=== PATIENT | male | born 2000 | race Caucasian/White ===

== ENCOUNTER 2023-10-07 10:41 | Emergency (ER) | payer BC, SELFPAY ==
--- NOTE | ~2023-10-07 | US_ITS ---
EXAMINATION: US RENAL, LEFT CLINICAL INFORMATION: Left flank and back pain COMPARISON: None TECHNIQUE: Ultrasound of the left kidney was performed. FINDINGS: The right kidney was not imaged due to to localizing pain. The left kidney measures 12.2 x 7.1 x 5.3 cm. There is mild caliectasis without hydronephrosis, contour deforming solid mass, shadowing calculus or perinephric fluid collection on the left. US/US renal LT IMPRESSION: Mild caliectasis.
--- NOTE | ~2023-10-07 | XR_ITS ---
EXAMINATION: XR LUMBOSACRAL SPINE CLINICAL INFORMATION: Lumbar pain after exercise COMPARISON: None available. TECHNIQUE: Three views of the lumbosacral spine. FINDINGS: Alignment normal. No fracture or destructive process. SI joints symmetric. XR/XR lumbar spine 2-3V IMPRESSION: Negative
[2023-10-07 11:15] VITALS: BP 123/77; PULSE 66; RESP 18; TEMP 36.6; O2SAT 100
--- NOTE | 2023-10-07 11:17 | ED.GENADULT ---
HPI - General Adult General Chief complaint: Back Pain/Injury Stated complaint: Back pain Time Seen by Provider: 10/07/23 11:43 Source: patient and RN notes reviewed Mode of arrival: ambulatory Limitations: no limitations History of Present Illness ED Provider: Sofi Rubio PA-C HPI narrative: This is a 23-year-old male, with no known medical problems, who presents emergency department with complaints of left-sided back pain since yesterday. Patient states that he has currently in the [employer] and was doing burpees. He states that he initially felt a burning sensation in his back which improved after stretching. He states that the pain did return and he went to urgent care where he was prescribed ibuprofen and muscle relaxants, last dose was this morning at 6:00 a.m.. He states that the medicine is not helping his symptoms at this time. States that the pain is constant and worsens with positional changes. The pain also radiates into his left flank. He denies any urinary symptoms. No fevers or chills. No history of similar symptoms in the past. No urinary or bowel incontinence or retention. No saddle anesthesia. No other complaints or concerns at this time. MD complaint: Back pain Onset (ago): day(s) Location: back Radiation: flank Severity: moderate Quality: burning and aching Pain Consistency: constant Relieving factors: immobilization Exacerbating factors: movement Associated symptoms: denies other symptoms Treatments prior to arrival: NSAID Related Data Previous Rx's ?Medication ?Instructions ?Recorded acetaminophen 500 mg tablet 500 mg PO Q4-6H PRN pain #30 tabs 10/07/23 (Tylenol Extra Strength) methocarbamol 750 mg tablet 750 mg PO TID 3 days #9 tabs 10/07/23 oxycodone 5 mg tablet 5 mg PO Q6H PRN severe pain (scale 10/07/23 score 7-10) #7 tabs Allergies Allergy/AdvReac Type Severity Reaction Status Date / Time No Known Allergies Allergy Verified 10/07/23 11:18 Review of Systems Review of Systems: Yes all other systems are reviewed and are negative Constitutional: Constitutional: Reports as per [facility] Social History Social History Advance Directives: No Advance Directives Information Provided: No Do you have a plan to hurt others: No Plan Physical Exam ED Vital Signs: Vital Signs - 24 hr 10/07/23 11:15 10/07/23 13:02 10/07/23 16:31 Temperature 98 F 98.4 F 98.1 F Pulse Rate 66 72 59 Respiratory Rate 18 18 18 Blood Pressure 123/77 129/59 L 123/70 Pulse Oximetry 100 98 100 Oxygen Delivery Method Room Air Room Air Room Air BMI result Body Mass Index 30.0 Const General: cooperative, comfortable and no acute distress Orientation/consciousness: patient oriented x3 Limitations: no limitations HENMT Head: Yes normal to inspection, Yes normocephalic and Yes atraumatic Ears: hearing grossly normal bilaterally General nose exam: Normal external nose present Face and sinus: Yes normal facial exam Mouth: Normal oral and palatal mucosa present, oropharynx normal and moist mucous membranes Throat: Yes posterior oropharynx normal Eyes General: appearance normal, both eyes and all related structures Eyelids: Yes eyelids normal Conjunctivae: conjunctivae normal Sclerae: sclerae normal Pupils: Equal, round and reactive pupils present EOM: EOMs intact bilaterally Neck Neck: Yes normal visual inspection, Yes full ROM and Yes no lymphadenopathy Lymphatic: no lymphadenopathy noted Chest Chest palpation & inspection: normal inspection of the chest Resp Effort & Inspection: normal respiratory effort and able to speak in complete sentences Auscultation: clear to auscultation bilaterally, no crackles, no rales, no rhonchi and no wheezes Cardio Rate: regular rate Rhythm: regular rhythm Heart sounds: S1 normal heart sound present and S2 normal heart sound present GI Other: Abdomen is soft, nontender, nondistended Inspection: Yes normal to inspection Back/Spine/Pelvis Other: No midline spine tenderness. He has tenderness palpation along the left flank. No CVA tenderness. Negative straight leg raise Skin General skin exam: no rashes or lesions noted Trauma: no lacerations or abrasions Wounds: no wounds Neuro General: patient oriented x3 and moves all extremities Cranial nerves: Yes Equal, round and reactive pupils present Extrem General: Yes normal to inspection Right upper extremity: normal to inspection Left upper extremity: normal to inspection Right lower extremity: normal to inspection Left lower extremity: normal to inspection Course Course Course Narrative: This is a rapid medical exam performed by Nancy Narvaez NP: Additional HPI, ROS, PE not included below will be deferred to primary provider. Patient is a 23-year-old male presenting to the ED with complaint of left lower back pain occasionally radiating down left upper leg. Current in the [employer] and pain began after doing burpees. Went to urgent care last night and was prescribed ibuprofen, flexeril and lidocaine patches but states these are not helping. Plan: xray Reevaluation(s) Reevaluation #1: X-ray negative. Awaiting ultrasound Time: 12:06 Reevaluation #2: Ultrasound returns revealing mild caliectasis. Given findings, will obtain labs, UA, will give 1 L of IV fluids. Patient comfortable Time: 15:52 Reevaluation #3: Creatinine 1.66, he is receiving 2 L of IV fluids. Urine does not appear to be infected, CPK within normal limits. I discussed workup with my attending Dr. Martin, who reviewed labs, given that we do not have a previous it is unsure whether not this is his normal kidney function. His BUN is not elevated therefore obstructive pathology unlikely. Patient advised follow-up with PCP and Urology. He understands and agrees with plan. Will continue hydrating, and he was given return precautions. Gentle stretching, massage. Discharged on muscle relaxants, Tylenol. Also given oxycodone for severe pain only. Educated the side effects of these medications as well as addictive properties. He understands. Patient stable for discharge. Time: 17:08 Medications Administered Generic Name Dose Route Start Last Admin Trade Name Freq PRN Reason Stop Dose Admin Sodium Chloride 1,000 mls @ 999 mls/hr 10/07/23 16:59 10/07/23 17:05 Ns IV 10/07/23 17:59 999 mls/hr .Q1H1M ONE Administration Discontinued Medications Generic Name Dose Route Start Last Admin Trade Name Freq PRN Reason Stop Dose Admin Acetaminophen 975 mg 10/07/23 11:52 10/07/23 12:09 Acetaminophen 325 Mg Tablet PO 10/07/23 11:53 975 mg ONCE ONE Administration Sodium Chloride 1,000 mls @ 999 mls/hr 10/07/23 15:46 10/07/23 17:20 Ns IV 10/07/23 16:46 Infused .Q1H1M ONE Infusion Medical Decision Making Medical Decision Making [facility] Narrative: This is a 23-year-old male, with no known medical problems, who presents emergency department with complaints of back pain after preforming burpees yesterday. He was seen at urgent care where he was prescribed ibuprofen and muscle relaxants which she took 1 dose of and this provided him with minimal relief. On arrival, vital signs within normal limits. He has tenderness palpation along his left flank. He has no urinary symptoms. Differential diagnoses include muscle spasm, strain, sprain, sciatica, lumbar radiculopathy. Given left-sided flank pain, will obtain ultrasound renal of the left to ensure no obstructive uropathy. Lumbar spine x-ray was also ordered out in triage. Differential Diagnosis Differential Diagnoses: The differential diagnosis associated with the presentation includes See above Admission/Observation Consideration of admission/observation: Escalation of care including admission/observation considered Escalation of care including admission/observation considered however given workup today not warranted at this time. Lab Data 10/07/23 16:16 10/07/23 16:16 Labs: Lab Results 10/07/23 10/07/23 Range/Units 16:16 16:22 WBC 9.9 (4.8-10.8) X10*3/uL RBC 5.34 (4.60-5.80) X10*6/uL Hgb 16.2 (14.0-18.0) g/dl Hct 47.5 (42.0-52.0) % MCV 89.0 (80.0-98.0) fL MCH 30.3 (27.0-33.0) pg MCHC 34.1 (31.0-36.0) g/dl RDW 13.1 (11.0-16.0) % Plt Count 151 L D (160-400) X10*3/uL MPV 9.3 L (9.4-12.4) fL Immature Gran % (Auto) 0.3 (0.0-0.4) % Neut % (Auto) 70.3 (45-73) % Lymph % (Auto) 17.2 L (20-40) % [place] % (Auto) 11.6 H (2-11) % Eos % (Auto) 0.5 (0-4) % Baso % (Auto) 0.1 (0-2) % Lymph # (Auto) 1.7 (1.2-4.9) X10*3/uL [place] # (Auto) 1.2 (0.1-1.2) X10*3/uL Eos # (Auto) 0.1 (0.0-0.4) X10*3/uL Baso # (Auto) 0.0 (0.0-0.2) X10*3/uL Abs Immat Gran (auto) 0.03 (0.00-0.03) X10*3/uL Absolute Neuts (auto) 7.0 (2.0-8.3) x10*3/uL Absolute Nucleated RBC 0.000 (0.0-0.012) X10*3/uL Nucleated RBC % (auto) 0.0 (0.0-0.2) /100WBC Sodium 141 (135-145) mmol/L Potassium 4.2 (3.3-5.1) mmol/L Chloride 105 (96-108) mmol/L Carbon Dioxide 27 (22-29) mmol/L Anion Gap 13 (12-20) BUN 13 (9-16) mg/dL Creatinine 1.66 H (0.5-1.4) mg/dL Estim Creat Clear Calc 73.8 Estimated GFR 51 Random Glucose 94 (60-115) mg/dL Calcium 9.1 (8.4-10.2) mg/dL Total Bilirubin 0.8 (0.0-1.0) mg/dL Direct Bilirubin 0.3 (0.0-0.5) mg/dL AST 15 (5-37) U/L ALT 21 (0-40) U/L Alkaline Phosphatase 60 (39-117) U/L Total Creatine Kinase 114 (38-174) U/L Total Protein 6.9 (6.5-8.0) g/dL Albumin 4.0 (3.5-5.0) g/dL Urine Color Yellow Urine Appearance Clear Urine pH 6.5 (5.0-9.0) Ur Specific [place] 1.015 (1.005-1.025) Urine Protein Negative (Neg-Trace) mg/dL Urine Glucose (UA) Negative (Negative) mg/dL Urine Ketones Negative (Negative) mg/dL Urine Blood Negative (Negative) Urine Nitrite Negative (Negative) Ur Leukocyte Esterase Negative (Negative) Radiology Impression Discussion of test interpretation with radiology: I have reviewed the radiologist's reading. Discharge Plan Discharge Clinical Impression: Strain of lumbar region Patient Disposition: Home, Self-Care Instructions: Back Pain (ED) Additional Instructions: You were seen in the emergency department due to back pain. You likely injured your back doing a Burpee. Please rest, apply heat or ice, gentle stretching massage, and take Tylenol as needed for pain. I am also prescribing you oxycodone which is a narcotic pain medication. This can cause drowsiness, do not drink alcohol or drive while taking this medication. Oxycodone also is addictive, only take this as needed for severe pain only. I am also advising you to follow-up with your primary care physician as you had elevated kidney function, creatinine 1.66. This may be your normal, however we do not have any labs for comparison. Your ultrasound showed mild caliectasis, which can be a normal finding. There has no evidence of infection or kidney stones. I am also advising you to follow-up with Urology. Drink plenty of fluids get plenty of rest. If any new or worsening symptoms occur including not limited to worsening is return. Prescriptions: New acetaminophen [Tylenol Extra Strength] 500 mg tablet 500 mg PO Q4-6H PRN (Reason: pain) Qty: 30 0RF methocarbamol 750 mg tablet 750 mg PO TID 3 Days Qty: 9 0RF oxycodone 5 mg tablet 5 mg PO Q6H PRN (Reason: severe pain (scale score 7-10)) Qty: 7 0RF Rx Instructions: Partial Fill upon patient request. Print Language: Persian
[2023-10-07] MEDS: Acetaminophen 325 MG TABLET 975 MG PO (12:09)
[2023-10-07 13:02] VITALS: BP 129/59; PULSE 72; RESP 18; TEMP 36.9; O2SAT 98
[2023-10-07] MEDS: 0.9 % Sodium Chloride 1,000 ML 999 ML IV ×2 (16:15→17:05)
[2023-10-07 16:24] LABS: MANUAL DIFF FLAG NO
[2023-10-07 16:29] LABS: Basophils Percent Auto 0.1 % (0-2); Eosinophils Absolute Auto 0.1 X10*3/uL (0.0-0.4); Eosinophils Percent Auto 0.5 % (0-4); Hematocrit 47.5 % (42.0-52.0); Hemoglobin 16.2 g/dl (14.0-18.0); Imm Gran Abs Auto 0.03 X10*3/uL (0.00-0.03); Imm Gran Pct Auto 0.3 % (0.0-0.4); Lymphocytes Absolute Auto 1.7 X10*3/uL (1.2-4.9); Lymphocytes Percent Auto 17.2 % (20-40); Mean Corpuscular HGB Conc 34.1 g/dl (31.0-36.0); Mean Corpuscular Hemoglobin 30.3 pg (27.0-33.0); Mean Platelet Volume 9.3 fL (9.4-12.4); Monocytes Absolute Auto 1.2 X10*3/uL (0.1-1.2); Monocytes Percent Auto 11.6 % (2-11); Neutrophils Percent Auto 70.3 % (45-73); Platelet Count 151 X10*3/uL (160-400); Red Blood Count 5.34 X10*6/uL (4.60-5.80); Red Cell Distribution Width 13.1 % (11.0-16.0); White Blood Count 9.9 X10*3/uL (4.8-10.8)
[2023-10-07 16:29] LABS: Appearance Urine Clear; Color Urine Yellow; Glucose Urine UA Negative (Negative); Leukocyte Esterase Urine Negative (Negative); Nitrite Urine Negative (Negative); PH 6.5 (5.0-9.0); Specific Gravity - Urine 1.015 (1.005-1.025); Urine Blood Negative (Negative); Urine Ketones Negative (Negative); Urine Protein Negative (Neg-Trace)
[2023-10-07 16:31] VITALS: BP 123/70; PULSE 59; RESP 18; TEMP 36.7; O2SAT 100
[2023-10-07 16:42] LABS: Alanine Aminotransferase 21 U/L (0-40); Alkaline Phosphatase 60 U/L (39-117); Anion Gap 13 (12-20); Aspartate Amino Transferase 15 U/L (5-37); Bilirubin Direct 0.3 mg/dL (0.0-0.5); Bilirubin Total 0.8 mg/dL (0.0-1.0); Blood Urea Nitrogen 13 mg/dL (9-16); Calcium 9.1 mg/dL (8.4-10.2); Carbon Dioxide 27 mmol/L (22-29); Chloride 105 mmol/L (96-108); Creatinine Clr Calc Pharmacy 73.8; Estimated Glomerular Filt Rate 51; Glucose Random 94 mg/dL (60-115); Potassium 4.2 mmol/L (3.3-5.1); Sodium 141 mmol/L (135-145); Total Protein 6.9 g/dL (6.5-8.0)
[2023-10-07 18:23] VITALS: BP 120/72; PULSE 65; RESP 20; TEMP 36.6; O2SAT 99
[2023-10-07 18:26] VITALS: BP 120/72; PULSE 65; RESP 20; TEMP 36.6; O2SAT 99
== END 2023-10-07 18:29 | disposition home or self-care (01) ==
PROVIDERS: Physician Assistant Medical; Emergency Provider Emergency Medicine
DX: S39.012A Strain of muscle, fascia and tendon of lower back, initial encounter (principal); X50.9XXA Other and unspecified overexertion or strenuous movements or postures, initial encounter; Y93.A9 Activity, other involving cardiorespiratory exercise; Y92.89 Other specified places as the place of occurrence of the external cause; Y99.9 Unspecified external cause status
CPT/HCPCS: 36415; 72100; 76775; 80048; 80076; 81003; 82550; 85025; 96360; 96361; 99284

== ENCOUNTER 2023-10-08 18:39 | Inpatient (IN) | payer BC, SELFPAY ==
--- NOTE | ~2023-10-08 | FL_ITS ---
EXAMINATION: XR FLUOROSCOPY WITH IMAGES CLINICAL INFORMATION: Left ureteral stone, fluoroscopic guidance. COMPARISON: None available. TECHNIQUE: Fluoroscopy Supervised By: Dr. Willis Valentin. Fluoroscopy Time: 27.9 sec. Cumulative Dose: 8.96 mGy. DAP: None. Images: 2. FINDINGS: Fluoroscopic guidance was provided for a procedure. Ureteral stent partially visualized. Please refer to operative report for detailed evaluation. FL/FL guidance in OR IMPRESSION: Fluoroscopic guidance was provided for a procedure. Ureteral stent partially visualized. Please refer to operative report for detailed evaluation.
--- NOTE | ~2023-10-08 | CT_ITS ---
EXAMINATION: LEFT LOWER QUADRANT PAIN CLINICAL INFORMATION: abd pain, left lower quadrant pain COMPARISON: Renal ultrasound 10/07/2023 TECHNIQUE: CT scan of the abdomen and pelvis was performed with 80 mL of Omnipaque 350 given intravenously. Additional sagittal and coronal two-dimensional reconstruction imaging was obtained at the acquisition workstation. FINDINGS: LUNG BASES: Normal. LIVER: Normal. GALLBLADDER AND BILIARY TREE: Normal. PANCREAS: Normal. SPLEEN: Normal. ADRENAL GLANDS: Normal. URINARY TRACT (KIDNEYS, URETERS, BLADDER): There is mild left hydronephrosis and hydroureter. There is a tiny 1 mm calcific density at the left UV junction compatible with a small ureteral calculus. There are several additional 1 mm calcifications throughout the left kidney compatible with nonobstructing renal calculi. The left kidney appears enlarged compared with the right. Minimal perinephric stranding. Minimal stranding along the left Gerota's fascia Bladder normal. Right kidney and collecting system normal. PELVIC ORGANS: Normal. PERITONEAL CAVITY: Normal. MESENTERY/OMENTUM: Normal. GI TRACT (STOMACH, SMALL BOWEL, LARGE BOWEL): Unremarkable. APPENDIX: Not visualized. No inflammatory changes in the right lower quadrant LYMPH NODES: Normal. VASCULAR: Normal. ABDOMINAL WALL/SOFT TISSUES: Normal. SKELETAL: Normal. CT/CT abdomen pelvis wo IV con IMPRESSION: 1. Tiny 1 mm calculus at the left UV junction resulting in mild hydronephrosis and hydroureter. 2. There are also additional nonobstructing 1 mm calculi throughout the left kidney.
--- NOTE | ~2023-10-08 | CT_ITS ---
EXAMINATION: LEFT LOWER QUADRANT PAIN CLINICAL INFORMATION: abd pain, left lower quadrant pain COMPARISON: Renal ultrasound 10/07/2023 TECHNIQUE: CT scan of the abdomen and pelvis was performed with 80 mL of Omnipaque 350 given intravenously. Additional sagittal and coronal two-dimensional reconstruction imaging was obtained at the acquisition workstation. FINDINGS: LUNG BASES: Normal. LIVER: Normal. GALLBLADDER AND BILIARY TREE: Normal. PANCREAS: Normal. SPLEEN: Normal. ADRENAL GLANDS: Normal. URINARY TRACT (KIDNEYS, URETERS, BLADDER): There is mild left hydronephrosis and hydroureter. There is a tiny 1 mm calcific density at the left UV junction compatible with a small ureteral calculus. There are several additional 1 mm calcifications throughout the left kidney compatible with nonobstructing renal calculi. The left kidney appears enlarged compared with the right. Minimal perinephric stranding. Minimal stranding along the left Gerota's fascia Bladder normal. Right kidney and collecting system normal. PELVIC ORGANS: Normal. PERITONEAL CAVITY: Normal. MESENTERY/OMENTUM: Normal. GI TRACT (STOMACH, SMALL BOWEL, LARGE BOWEL): Unremarkable. APPENDIX: Not visualized. No inflammatory changes in the right lower quadrant LYMPH NODES: Normal. VASCULAR: Normal. ABDOMINAL WALL/SOFT TISSUES: Normal. SKELETAL: Normal. CT/CT angio abdomen pelvis IMPRESSION: 1. Tiny 1 mm calculus at the left UV junction resulting in mild hydronephrosis and hydroureter. 2. There are also additional nonobstructing 1 mm calculi throughout the left kidney.
[2023-10-08 18:56] VITALS: BP 143/79; PULSE 70; RESP 18; TEMP 36.8; O2SAT 97; BMI 30.2
--- NOTE | 2023-10-08 18:57 | ED.GENADULT ---
HPI - General Adult General Chief complaint: Abdominal Pain Stated complaint: abd pain radiating to lower back Time Seen by Provider: 10/08/23 22:03 History of Present Illness ED Provider: Jp GREEN narrative: 23-year-old male presenting with left flank pain. Patient states that he has been experiencing worsening left flank pain for the past few days. He was seen here yesterday and had an ultrasound that showed mild caliectasis without hydro. He presents today due to worsening pain that is now radiating from his left flank to his left lower quadrant. Patient denies testicular pain Onset (ago): day(s) Related Data Previous Rx's ?Medication ?Instructions ?Recorded acetaminophen 500 mg tablet 500 mg PO Q4-6H PRN pain #30 tabs 10/07/23 (Tylenol Extra Strength) methocarbamol 750 mg tablet 750 mg PO TID 3 days #9 tabs 10/07/23 oxycodone 5 mg tablet 5 mg PO Q6H PRN severe pain (scale 10/07/23 score 7-10) #7 tabs Allergies Allergy/AdvReac Type Severity Reaction Status Date / Time No Known Allergies Allergy Verified 10/08/23 18:57 Review of Systems Review of Systems: Patient denies headaches, fevers, chills, chest pain, shortness breath, abdominal pain, diarrhea Patient does endorse dysuria and left flank pain and left lower quadrant abdominal PMFSH Past Medical History Attestation statement: The following information was validated with the patient. Source: old records reviewed Social History Social History Advance Directives: No Advance Directives Information Provided: No Do you have a plan to hurt others: No Plan Physical Exam ED Vital Signs: Vital Signs - 24 hr 10/08/23 18:56 10/08/23 21:17 10/08/23 22:49 Temperature 98.3 F 100.8 F H 100.2 F Pulse Rate 70 96 82 Respiratory Rate 18 18 20 Blood Pressure 143/79 H 132/80 111/90 H Pulse Oximetry 97 98 99 Oxygen Delivery Method Room Air Room Air Room Air 10/08/23 23:38 Temperature 99.8 F Pulse Rate Respiratory Rate Blood Pressure Pulse Oximetry Oxygen Delivery Method BMI result Body Mass Index 30.2 Left flank tenderness to palpation; abdomen soft, nondistended with left lower quadrant tenderness to palpation testicular exam deferred the patient denies testicular pain Course Course Course Narrative: This is an RME done by PATRICIA Cartagena: Additional HPI, ROS, PE not included below will be deferred to primary provider. 23 yo m presents w/ severe LLQ pain X 3 days pain > 10/10 started after doing burpes was seen here yesterday dc with meds no relief discussed case w/ Dr. Tobar who recommends CTA Medications Administered Discontinued Medications Generic Name Dose Route Start Last Admin Trade Name Freq PRN Reason Stop Dose Admin Sodium Chloride 1,000 mls @ 999 mls/hr 10/08/23 22:15 10/08/23 23:36 Ns IV 10/08/23 23:15 Infused .Q1H1M SOLOMON Infusion Ceftriaxone Sodium 1 gm/ 50 mls @ 100 mls/hr 10/08/23 22:22 10/08/23 23:21 Sodium Chloride IV 10/08/23 22:51 Infused ONCE ONE Infusion Iohexol 80 ml 10/08/23 20:00 10/08/23 20:01 Iohexol 350 Mg/Ml 100 Ml Infus..Btl IV 10/08/23 20:01 80 ml ONCE ONE Administration Ketorolac Tromethamine 15 mg 10/08/23 22:20 10/08/23 22:51 Ketorolac Tromethamine 15 Mg/Ml Vial IVPUSH 10/08/23 22:21 15 mg ONCE ONE Administration Morphine Sulfate 2 mg 10/08/23 23:25 10/08/23 23:37 Morphine Sulfate 4 Mg/Ml Cartridge IVPUSH 10/08/23 23:26 2 mg ONCE ONE Administration Protocol Medical Decision Making Medical Decision Making MDM Narrative: Lab work and imaging studies were ordered in triage Patient's CT is showing 1 mm stone at the left ureterovesicular junction with mild hydronephrosis and hydroureter Patient's UA showing RBCs and 6-10 WBCs My fluids, antibiotics and Toradol I was concerned for infected stone as patient is febrile in the ED; I spoke with on-call urologist Willis Valentin who recommended Flomax, antibiotics and discharge I ordered additional fluids and tamsulosin for patient and contacted hospitalist who accepted admission Differential Diagnosis Nephrolithiasis, pyelonephritis, UTI Less likely testicular torsion, SBO, diverticulitis Lab Data 10/08/23 19:03 10/08/23 19:03 Labs: Lab Results 10/08/23 10/08/23 Range/Units 19:03 19:54 WBC 11.1 H (4.8-10.8) X10*3/uL RBC 5.02 (4.60-5.80) X10*6/uL Hgb 15.1 (14.0-18.0) g/dl Hct 44.2 (42.0-52.0) % MCV 88.0 (80.0-98.0) fL MCH 30.1 (27.0-33.0) pg MCHC 34.2 (31.0-36.0) g/dl RDW 12.8 (11.0-16.0) % Plt Count 140 L (160-400) X10*3/uL MPV 9.1 L (9.4-12.4) fL Immature Gran % (Auto) 0.6 H (0.0-0.4) % Neut % (Auto) 75.1 H (45-73) % Lymph % (Auto) 13.5 L (20-40) % [place] % (Auto) 10.2 (2-11) % Eos % (Auto) 0.4 (0-4) % Baso % (Auto) 0.2 (0-2) % Lymph # (Auto) 1.5 (1.2-4.9) X10*3/uL [place] # (Auto) 1.1 (0.1-1.2) X10*3/uL Eos # (Auto) 0.0 (0.0-0.4) X10*3/uL Baso # (Auto) 0.0 (0.0-0.2) X10*3/uL Abs Immat Gran (auto) 0.07 H (0.00-0.03) X10*3/uL Absolute Neuts (auto) 8.4 H (2.0-8.3) x10*3/uL Absolute Nucleated RBC 0.000 (0.0-0.012) X10*3/uL Nucleated RBC % (auto) 0.0 (0.0-0.2) /100WBC Sodium 140 (135-145) mmol/L Potassium 4.0 (3.3-5.1) mmol/L Chloride 104 (96-108) mmol/L Carbon Dioxide 28 (22-29) mmol/L Anion Gap 12 (12-20) BUN 13 (9-16) mg/dL Creatinine 1.51 H (0.5-1.4) mg/dL Estim Creat Clear Calc 81.5 Estimated GFR 57 Random Glucose 116 H (60-115) mg/dL Calcium 9.5 (8.4-10.2) mg/dL Magnesium 1.9 (1.6-2.6) mg/dL Total Bilirubin 0.7 (0.0-1.0) mg/dL AST 14 (5-37) U/L ALT 17 (0-40) U/L Alkaline Phosphatase 55 (39-117) U/L Total Protein 6.8 (6.5-8.0) g/dL Albumin 3.9 (3.5-5.0) g/dL Lipase 24 (8-78) U/L Urine Color Yellow Urine Appearance Clear Urine pH 7.5 (5.0-9.0) Ur Specific [place] 1.015 (1.005-1.025) Urine Protein 30 (1+) H (Neg-Trace) mg/dL Urine Glucose (UA) Negative (Negative) mg/dL Urine Ketones 15 (Negative) mg/dL Urine Blood Large (3+) H (Negative) Urine Nitrite Negative (Negative) Ur Leukocyte Esterase Moderate (2+) H (Negative) Urine RBC >20 H (0-2) /HPF Urine WBC 6-10 H (0-5) /HPF Ur Squamous Epith Cells 0-2 (0-2) /HPF Urine Bacteria None Seen (None Seen) Hyaline Casts 0-2 (0-2) /LPF Discharge Plan Discharge Clinical Impression: Nephrolithiasis, Hydronephrosis Patient Disposition: Admitted As Inpatient Print Language: Turkish
[2023-10-08 19:06] LABS: MANUAL DIFF FLAG NO
--- NOTE | 2023-10-08 19:12 | MHC.EDTECH ---
Patient came in from triage,changed into hospital attire,placed on the radiographer cardiac catheterization,attempted to get a urine sample,pt was unable to at this time,will re-attempt,call miranda in reach
[2023-10-08 19:15] LABS: Basophils Percent Auto 0.2 % (0-2); Eosinophils Percent Auto 0.4 % (0-4); Hematocrit 44.2 % (42.0-52.0); Hemoglobin 15.1 g/dl (14.0-18.0); Imm Gran Abs Auto 0.07 X10*3/uL (0.00-0.03); Imm Gran Pct Auto 0.6 % (0.0-0.4); Lymphocytes Absolute Auto 1.5 X10*3/uL (1.2-4.9); Lymphocytes Percent Auto 13.5 % (20-40); Mean Corpuscular HGB Conc 34.2 g/dl (31.0-36.0); Mean Corpuscular Hemoglobin 30.1 pg (27.0-33.0); Mean Platelet Volume 9.1 fL (9.4-12.4); Monocytes Absolute Auto 1.1 X10*3/uL (0.1-1.2); Monocytes Percent Auto 10.2 % (2-11); Neutrophils Absolute Auto 8.4 x10*3/uL (2.0-8.3); Neutrophils Percent Auto 75.1 % (45-73); Platelet Count 140 X10*3/uL (160-400); Red Blood Count 5.02 X10*6/uL (4.60-5.80); Red Cell Distribution Width 12.8 % (11.0-16.0); White Blood Count 11.1 X10*3/uL (4.8-10.8)
--- NOTE | 2023-10-08 19:16 | MHC.EDTECH ---
Patient went to CT at this time
[2023-10-08 19:23] LABS: Alanine Aminotransferase 17 U/L (0-40); Albumin Level 3.9 g/dL (3.5-5.0); Alkaline Phosphatase 55 U/L (39-117); Anion Gap 12 (12-20); Aspartate Amino Transferase 14 U/L (5-37); Bilirubin Total 0.7 mg/dL (0.0-1.0); Blood Urea Nitrogen 13 mg/dL (9-16); Calcium 9.5 mg/dL (8.4-10.2); Carbon Dioxide 28 mmol/L (22-29); Chloride 104 mmol/L (96-108); Creatinine Clr Calc Pharmacy 81.5; Estimated Glomerular Filt Rate 57; Glucose Random 116 mg/dL (60-115); Magnesium 1.9 mg/dL (1.6-2.6); Sodium 140 mmol/L (135-145); Total Protein 6.8 g/dL (6.5-8.0)
--- NOTE | 2023-10-08 19:55 | MHC.EDTECH ---
Patient ambulated to the bathroom with a steady gait,urine sample obtained and sent to lab.Patient went to have CT Scan at this time.
[2023-10-08] MEDS: iohexoL 350 MG/ML 100 ML INFUS..BTL 80 ML IV (20:01)
[2023-10-08 20:04] LABS: Appearance Urine Clear; Color Urine Yellow; Glucose Urine UA Negative (Negative); Leukocyte Esterase Urine Moderate (2+) (Negative); Nitrite Urine Negative (Negative); PH 7.5 (5.0-9.0); Specific Gravity - Urine 1.015 (1.005-1.025); UMIC TRIGGER UACC YES; Urine Blood Large (3+) (Negative); Urine Ketones 15 mg/dL (Negative); Urine Protein 30 (1+) mg/dL (Neg-Trace)
[2023-10-08 20:07] LABS: Bacteria Urine None Seen (None Seen); Hyaline Casts Urine 0-2 /LPF (0-2); RBC Urine >20 /HPF (0-2); Squamous Epithelial Cell Urine 0-2 /HPF (0-2); UACC Culture Trigger YES
--- NOTE | 2023-10-08 21:07 | PC.NURSE ---
pt reporting 10/10 LLQ abd pain. pt awaiting primary eval by ed provider. Dr. Jasmyne colon.
[2023-10-08 21:17] VITALS: BP 132/80; PULSE 96; RESP 18; TEMP 38.2; O2SAT 98
--- NOTE | 2023-10-08 21:17 | MHC.EDTECH ---
Hourly rounds and vitals completed,temp is 100.8 Irem RN made aware,blanket taken off and sheet given,parents at bedside,call miranda in reach
--- NOTE | 2023-10-08 21:20 | PC.NURSE ---
MD Dr. Medley aware of temp.
[2023-10-08] MEDS: 0.9 % Sodium Chloride 1,000 ML 999 ML IV (22:21)
[2023-10-08 22:28] LABS: Lipase 24 U/L (8-78)
[2023-10-08 22:49] VITALS: BP 111/90; PULSE 82; RESP 20; TEMP 37.9; O2SAT 99
--- NOTE | 2023-10-08 22:49 | MHC.EDTECH ---
Patient rang,patient is having pain,RN is aware at bedside,vitals taken oral temp is 100.2,parents at bedside,call miranda in reach
[2023-10-08] MEDS: Ketorolac Tromethamine 15 MG/ML VIAL IVPUSH (22:51)
[2023-10-08] MEDS: cefTRIAXone sodium 1 GM in 0.9 % Sodium Chloride 50 ML IV (22:51)
[2023-10-08] MEDS: Morphine Sulfate 4 MG/ML CARTRIDGE 2 MG IVPUSH (23:37)
[2023-10-08 23:38] VITALS: TEMP 37.7
--- NOTE | 2023-10-08 23:43 | PC.NURSE ---
pt medicated per mar for pain slight improvement with toradol. pt is axox4 resp even and unlabored resting comfortably in stretcher.
[2023-10-09] VITALS (8 sets, daily range): BP systolic 110–136; BP diastolic 48–71; PULSE 73–96; RESP 16–20; TEMP 36–37.4; O2SAT 95–99
--- NOTE | 2023-10-09 00:43 | P.HPHOSP_ITS ---
History of Present Illness Date of Service: 10/09/23 Chief Complaint: Abdominal pain This is a 23-year-old male with no pertinent past medical history and not on prescription medications who presents to the emergency department for evaluation of left flank pain. Patient states it started 3 days prior to presentation. Patient was seen in the ER 1 day prior to presentation when an ultrasound was done which showed mild caliectasis. Patient was discharged on p.o. oxycodone but returned to the ER as his symptoms progressed. Pain was not relieved p.o. oxycodone. He has not experienced similar pain before. No history of kidney stones. He denies fever, chills, chest discomfort, palpitations, shortness of breath, changes in urinary or bowel habits. In the emergency department, imaging with nephrolithiasis and hydronephrosis with hydroureter. Review of Systems 2 Constitutional: Constitutional: Reports chills and Reports fever(s) Cardiovascular: Cardiovascular: Reports no additional cardiovascular complaints Respiratory: Respiratory: Reports no additional respiratory complaints Gastrointestinal: Gastrointestinal: Reports abdominal pain Genitourinary: Genitourinary: Reports no additional male genitourinary complaints [facility] Pertinent family history: No family history of early CAD Social History Patient Tobacco Use Status: Never used Tobacco Smoked in Last 30 Days: No Use of substances other than those prescribed or required for medical reasons: No Advance Directives: No Advance Directives Information Provided: No Do you have a plan to hurt others: No Plan Nutrition Risks: No Nutritional Risk Meds Allergies Allergy/AdvReac Type Severity Reaction Status Date / Time No Known Allergies Allergy Verified 10/08/23 18:57 Active Medications: Current Medications Sodium Chloride (Ns) 1,000 mls @ 999 mls/hr IV .Q1H1M [facility] Stop: 10/09/23 01:30 Physical Exam 2 Vital Signs and Narrative: Vital Signs: Last Vital Signs Temp 99.8 F 10/08/23 23:38 Pulse 82 10/08/23 22:49 Resp 20 10/08/23 22:49 BP 111/90 H 10/08/23 22:49 Pulse Ox 99 10/08/23 22:49 O2 Del Method Room Air 10/08/23 22:49 BMI result Body Mass Index 30.2 Middle-aged male lying in bed in no distress Neck supple, no JVD Regular rate and rhythm, S1-S2 heard Regular breath sounds bilaterally, no wheezing or crackles appreciated Abdomen with left-sided CVA tenderness Patient is awake, alert and oriented to self, place, time and person ; no focal motor deficit Psych: Normal mood No pedal edema Results Labs 10/08/23 19:03 10/08/23 19:03 Labs: Laboratory Results - last 24 hr 10/08/23 10/08/23 19:03 19:54 MCV 88.0 MCH 30.1 MCHC 34.2 RDW 12.8 Plt Count 140 L MPV 9.1 L Immature Gran % (Auto) 0.6 H Neut % (Auto) 75.1 H Lymph % (Auto) 13.5 L [place] % (Auto) 10.2 Eos % (Auto) 0.4 Baso % (Auto) 0.2 Lymph # (Auto) 1.5 [place] # (Auto) 1.1 Eos # (Auto) 0.0 Baso # (Auto) 0.0 Abs Immat Gran (auto) 0.07 H Absolute Neuts (auto) 8.4 H Absolute Nucleated RBC 0.000 Nucleated RBC % (auto) 0.0 Anion Gap 12 Estim Creat Clear Calc 81.5 Estimated GFR 57 Random Glucose 116 H Calcium 9.5 Magnesium 1.9 Total Bilirubin 0.7 AST 14 ALT 17 Alkaline Phosphatase 55 Total Protein 6.8 Albumin 3.9 Lipase 24 Urine Color Yellow Urine Appearance Clear Urine pH 7.5 Ur Specific [place] 1.015 Urine Protein 30 (1+) H Urine Glucose (UA) Negative Urine Ketones 15 Urine Blood Large (3+) H Urine Nitrite Negative Ur Leukocyte Esterase Moderate (2+) H Urine RBC >20 H Urine WBC 6-10 H Ur Squamous Epith Cells 0-2 Urine Bacteria None Seen Hyaline Casts 0-2 Imaging Radiologist's Impressions: Impressions Abdomen/Pelvis CT 10/08/23 19:24 IMPRESSION: 1. Tiny 1 mm calculus at the left UV junction resulting in mild hydronephrosis and hydroureter. 2. There are also additional nonobstructing 1 mm calculi throughout the left kidney. Abdomen/Pelvis CTA 10/08/23 20:05 IMPRESSION: 1. Tiny 1 mm calculus at the left UV junction resulting in mild hydronephrosis and hydroureter. 2. There are also additional nonobstructing 1 mm calculi throughout the left kidney. Assessment and Plan (1) Nephrolithiasis: Status: Acute (2) Hydronephrosis: Status: Acute Plan This is a 23-year-old male with no pertinent past medical history and not on prescription medications who presents to the emergency department for evaluation of left flank pain. #. Nephrolithiasis, left-sided with hydronephrosis and hydroureter: Will admit patient with IV opioids p.r.n. for analgesia. Initiating Flomax. Consulting Urology. #. Elevated creatinine, likely GAIL: Monitor creatinine and urine output with crystalloid resuscitation. Avoid nephrotoxins #. SIRS+, likely genitourinary source: Resuscitated with IV crystalloids. Lactic acid and blood culture obtained. Initiating empiric IV Rocephin DVT prophylaxis: Mechanical Full code Admit as inpatient and will require two night minimum hospital stay for evaluation of IV antibiotics, IV opioids p.r.n. (as above), which is not possible in a lesser acute setting. Specialist consult pending Quality Stroke Does the patient have a stroke diagnosis?: No VTE Prior VTE?: No VTE Risk Level:: Medical - moderate - high VTE Device Contraindication: N/A - Device Ordered VTE Drug Contraindication: Treatment Not Indicated
[2023-10-09] MEDS: 0.9 % Sodium Chloride 1,000 ML 999 ML IV (00:54)
[2023-10-09] MEDS: Tamsulosin HCL 0.4 MG CAPSULE PO ×2 (00:54→08:09)
--- NOTE | 2023-10-09 00:55 | MHC.EDTECH ---
Hourly rounds and vitals completed,belongings list completed,copy placed in chart,belongings at bedside,patient has 371.00 [place],pt refused safe,call miranda in reach
--- OUTSIDE RECORDS SUMMARY | 2023-10-09 00:57 | XMS_ITS | Patient Health Record ---
Author Organization [facility] Address [address] [place] [address] Care Team Providers Care Chemical Analytical Sampler Name Role Phone Morales Adams Primary Care Provider Unavailable Cuong Comer Unavailable [phone] Migration, Provider Unavailable Unavailable Allergies No Known Allergies Reason For Referral No Information Medications Medication SIG (Take, Route, Fr equency, Duration) Notes Start Date End Date Status Allergy Relief 10 MG 1 tab(s) orally once a day Active Social History Tobacco Use: Social History Observation Description Date Details (start date - stop date) Never Smoker NA - NA Smoking: Question Answer Notes Are you a : Never Smoker Alcohol Screen Question Answer Notes Did you have a drink containing alcohol in the p ast year? No Points 0 Interpretation Negative Encounters Encounter Location Date Provider Diagnosis [facility] [address] [address] 10/19/2022 Provider Migration Plan Of Treatment No Information Insurance Providers Payer Name Payer Address Payer Phone Subscriber Number Group Number Insured Name Patient Relationship to Insured Coverage Start Date Coverage End Date [facility] [address] [address] [place] [address] [phone] [id number] Smith Gandara Self - patient is the insured Medical (General) History Surgical History Surgery Date(Month/Year) [place]
--- NOTE | 2023-10-09 02:03 | MHC.EDTECH ---
Hourly rounds and vitals completed,patient spilled a cup of water in bed,linen changed,patient ambulated to the bathroom with a steady gait,urinated per pt, patient refused to put a Cuco back on he is hot at this time,call miranda in reach
--- NOTE | 2023-10-09 05:13 | MHC.EDTECH ---
Both sets of blood cultures and labs drawn and sent to lab,hourly rounds and vitals completed,patient urinated 350MLS of clear yellow urine in urinal,lights dimmed and call miranda in reach
[2023-10-09 05:21] LABS: Basophils Percent Auto 0.3 % (0-2); Eosinophils Absolute Auto 0.1 X10*3/uL (0.0-0.4); Eosinophils Percent Auto 0.6 % (0-4); Hematocrit 39.4 % (42.0-52.0); Hemoglobin 13.8 g/dl (14.0-18.0); Imm Gran Abs Auto 0.04 X10*3/uL (0.00-0.03); Imm Gran Pct Auto 0.4 % (0.0-0.4); Lymphocytes Absolute Auto 1.6 X10*3/uL (1.2-4.9); Lymphocytes Percent Auto 15.8 % (20-40); MANUAL DIFF FLAG NO; Mean Corpuscular Hemoglobin 30.1 pg (27.0-33.0); Mean Platelet Volume 8.7 fL (9.4-12.4); Monocytes Absolute Auto 1.2 X10*3/uL (0.1-1.2); Monocytes Percent Auto 11.5 % (2-11); Neutrophils Absolute Auto 7.4 x10*3/uL (2.0-8.3); Neutrophils Percent Auto 71.4 % (45-73); Platelet Count 132 X10*3/uL (160-400); Red Blood Count 4.58 X10*6/uL (4.60-5.80); Red Cell Distribution Width 12.6 % (11.0-16.0); White Blood Count 10.3 X10*3/uL (4.8-10.8)
[2023-10-09 05:31] LABS: Lactic Acid 0.5 mmol/L (0.5-2.0)
[2023-10-09 05:36] LABS: Anion Gap 11 (12-20); Blood Urea Nitrogen 11 mg/dL (9-16); Calcium 7.8 mg/dL (8.4-10.2); Carbon Dioxide 22 mmol/L (22-29); Chloride 110 mmol/L (96-108); Estimated Glomerular Filt Rate 56; Glucose Random 94 mg/dL (60-115); Potassium 4.3 mmol/L (3.3-5.1); Sodium 139 mmol/L (135-145)
--- NOTE | 2023-10-09 07:59 | PC.NURSE ---
RN to RN report given to Radha over the phone. Plan to move patient from ED Bed 15 to ED Overflow 3 for further monitoring/care management. Transport staff member (Nino Gonzalez) notified of transfer via [email or web address].
[2023-10-09] MEDS: Morphine Sulfate 4 MG/ML CARTRIDGE 2 MG IVPUSH (08:08)
[2023-10-09] MEDS: 0.9 % Sodium Chloride Flush 3 ML SYRINGE IVFLUSH (08:09)
--- NOTE | 2023-10-09 09:15 | PC.NURSE ---
Luciano Wu MD for additional PRN pain medication. Pt. is still in 10/14 pain and states that he felt no relief from Morphine 2mg IV.
[2023-10-09] MEDS: Lactated Ringers 1,000 ML 125 ML IVCONT ×2 (09:16→16:35)
--- NOTE | 2023-10-09 09:40 | PC.NURSE ---
OK per MD to administer PRN Dilaudid per pt.'s current pain rating of 7/10.
[2023-10-09] MEDS: HYDROmorphone HCl 0.5 MG/0.5 ML SYRINGE IVPUSH ×2 (09:46→20:36)
--- NOTE | 2023-10-09 10:14 | PHA.MEDREC ---
Pharmacy Consult ? Medication Reconciliation Pharmacy has completed the medication reconciliation, spoke to patient at beside pt confirmed all meds.
--- NOTE | 2023-10-09 10:32 | P.PNIM_ITS ---
Subjective Subjective Date of Service: 10/09/23 Interval History: Still with significant left flank pain, has not passed stone Physical Exam 2 Vital Signs: Vital Signs: Last Vital Signs Temp 96.8 F 10/09/23 09:20 Pulse 75 10/09/23 09:20 Resp 20 10/09/23 09:46 BP 136/54 L 10/09/23 09:20 Pulse Ox 99 10/09/23 09:20 O2 Del Method Room Air 10/09/23 09:20 BMI result Body Mass Index 30.2 General: AO X 3, no acute distress Resp: CTA bilateral, no accessory muscles used CVS: S1,S2,RRR GI: soft, non tender, non distended Neuro: motor grossly intact, alert Psych: appropriate affect, appropriate insight Objective Data Active Medications Acetaminophen (Acetaminophen 325 Mg Tablet) 650 mg PO Q6H PRN PRN Reason: Pain, Mild (Pain Scale 1-3), fever or headache Calcium Carbonate (Calcium Carbonate 750 Mg Tab.Chew) 750 mg PO Q4H PRN PRN Reason: Heartburn Hydromorphone HCl (Hydromorphone Hcl 0.5 Mg/0.5 Ml Syringe) 0.5 mg IVPUSH Q3H PRN; Protocol PRN Reason: Pain, Moderate(Pain Scale 4-6) Last Admin: 10/09/23 09:46 Dose: 0.5 mg Documented By: LEV Ceftriaxone Sodium 1 gm/ (Sodium Chloride) 50 mls @ 100 mls/hr IV Q24H [facility] Lactated Ringer's (Lr) 1,000 mls @ 125 mls/hr IVCONT .Q8H [facility] Last Admin: 10/09/23 09:16 Dose: 125 mls/hr Documented By: LEV Magnesium Hydroxide (Milk Of Magnesia 30 Ml Oral.Susp) 30 ml PO DAILY PRN PRN Reason: Constipation Melatonin (Melatonin 3 Mg Tablet) 6 mg PO BEDTIME PRN PRN Reason: Insomnia Ondansetron HCl (Ondansetron Hcl 4 Mg/2 Ml Vial) 4 mg IVPUSH Q8H PRN PRN Reason: Nausea and Vomiting Sodium Chloride (0.9 % Sodium Chloride Flush 3 Ml Syringe) 3 ml IVFLUSH QSHIFT [facility] Last Admin: 10/09/23 08:09 Dose: 3 ml Documented By: RAUL Tamsulosin HCl (Tamsulosin Hcl 0.4 Mg Capsule) 0.4 mg PO DAILY [facility] Last Admin: 10/09/23 08:09 Dose: 0.4 mg Documented By: RAUL Labs 10/09/23 05:05 10/09/23 05:05 Labs: Laboratory Results - last 24 hr 10/08/23 10/08/23 10/09/23 19:03 19:54 05:05 MCV 88.0 86.0 MCH 30.1 30.1 MCHC 34.2 35.0 RDW 12.8 12.6 Plt Count 140 L 132 L MPV 9.1 L 8.7 L Immature Gran % (Auto) 0.6 H 0.4 Neut % (Auto) 75.1 H 71.4 Lymph % (Auto) 13.5 L 15.8 L [place] % (Auto) 10.2 11.5 H Eos % (Auto) 0.4 0.6 Baso % (Auto) 0.2 0.3 Lymph # (Auto) 1.5 1.6 [place] # (Auto) 1.1 1.2 Eos # (Auto) 0.0 0.1 Baso # (Auto) 0.0 0.0 Abs Immat Gran (auto) 0.07 H 0.04 H Absolute Neuts (auto) 8.4 H 7.4 Absolute Nucleated RBC 0.000 0.000 Nucleated RBC % (auto) 0.0 0.0 Anion Gap 12 11 L Estim Creat Clear Calc 81.5 81.0 Estimated GFR 57 56 Random Glucose 116 H 94 Lactic Acid 0.5 Calcium 9.5 7.8 L D Magnesium 1.9 Total Bilirubin 0.7 AST 14 ALT 17 Alkaline Phosphatase 55 Total Protein 6.8 Albumin 3.9 Lipase 24 Urine Color Yellow Urine Appearance Clear Urine pH 7.5 Ur Specific [place] 1.015 Urine Protein 30 (1+) H Urine Glucose (UA) Negative Urine Ketones 15 Urine Blood Large (3+) H Urine Nitrite Negative Ur Leukocyte Esterase Moderate (2+) H Urine RBC >20 H Urine WBC 6-10 H Ur Squamous Epith Cells 0-2 Urine Bacteria None Seen Hyaline Casts 0-2 Microbiology Microbiology Results: Microbiology 10/08/23 19:54 Urine Culture - Preliminary Urine clean catch - Clean Catch Midstream No growth to date. Assessment and Plan (1) Hydronephrosis: Status: Acute Plan 23M presented with left flank pain found to have obstructing left 1 mm stone Left flank pain due to obstructing left 1 mm stone with hydronephrosis and acute kidney injury Continue IV fluids, Flomax, strain urine, pain meds, follow up Urology, monitor BMP, empiric antibiotics, follow-up cultures Low risk for DVT - early ambulation Full code reason for continued hospitalization: Has not passed stone, requiring IV interventions Quality Stroke Does the patient have a stroke diagnosis?: No VTE Prior VTE?: No VTE Risk Level:: Medical - moderate - high VTE Device Contraindication: N/A - Device Ordered VTE Drug Contraindication: Treatment Not Indicated
--- NOTE | 2023-10-09 10:59 | MHC.EDTECH ---
This tech emptied urinal at 200cc, yellow urine.
--- NOTE | 2023-10-09 12:32 | PC.NURSE ---
Per Dr. Valentin - pt. can eat today and is not NPO. Surgery will potentially be tomorrow, if he doesn't pass the stone.
[2023-10-09] MEDS: cefTRIAXone sodium 1 GM in 0.9 % Sodium Chloride 50 ML IV (20:37)
[2023-10-09] MEDS: HYDROmorphone HCl 1 MG/ML SYRINGE IVPUSH (22:49)
[2023-10-10] VITALS (11 sets, daily range): BP systolic 112–143; BP diastolic 58–87; PULSE 56–99; RESP 16–20; TEMP 36.2–37.1; O2SAT 95–98; BMI 31.0
[2023-10-10] MEDS: Lactated Ringers 1,000 ML 125 ML IVCONT ×3 (00:08→08:30)
[2023-10-10] MEDS: 0.9 % Sodium Chloride Flush 3 ML SYRINGE IVFLUSH (00:11)
--- NOTE | 2023-10-10 00:21 | PC.NURSE ---
Patient is alert and oriented x3 speech is clear he is ambulatory out of bed. Patient complains of flank pain to the right side , PRN medication given with no effect MD Orozco notified and pain medication dose increased with good outcome. Patient lung sounds are clear, he denies nausea and vomiting. IVF going per ordered rated. Patient abdomen is soft non- tender he is educated that he is npo at this time. Patient is being transported to floor . Report given verbally to RN.
[2023-10-10 06:33] LABS: Hemoglobin 13.9 g/dl (14.0-18.0); Mean Corpuscular HGB Conc 33.9 g/dl (31.0-36.0); Mean Corpuscular Hemoglobin 29.8 pg (27.0-33.0); Mean Corpuscular Volume 87.8 fL (80.0-98.0); Platelet Count 130 X10*3/uL (160-400); Red Blood Count 4.67 X10*6/uL (4.60-5.80); Red Cell Distribution Width 12.7 % (11.0-16.0); White Blood Count 6.7 X10*3/uL (4.8-10.8)
[2023-10-10 06:50] LABS: Anion Gap 12 (12-20); Blood Urea Nitrogen 10 mg/dL (9-16); Calcium 8.8 mg/dL (8.4-10.2); Carbon Dioxide 26 mmol/L (22-29); Chloride 106 mmol/L (96-108); Creatinine Clr Calc Pharmacy 123.4; Estimated Glomerular Filt Rate > 60; Glucose Fasting 96 mg/dL (60-99); Potassium 4.5 mmol/L (3.3-5.1); Sodium 139 mmol/L (135-145)
[2023-10-10] MEDS: HYDROmorphone HCl 1 MG/ML SYRINGE IVPUSH (08:29)
[2023-10-10] MEDS: Tamsulosin HCL 0.4 MG CAPSULE PO (08:30)
--- NOTE | 2023-10-10 08:45 | PM.UROCN ---
History of Present Illness Consult details Consult date: 10/09/23 Narrative: CC: Distal left ureteric stone with flank pain 23-year-old male No prior stone history States left flank plain prior for 3 days before presentation to emergency room. Had been seen yesterday in ultrasound done which showed mild caliectasis and at that point had been discharged with oxycodone. Returned to emergency room is pain was not managed with oxycodone. Imaging Tiny 1 mm calculus at the left UV junction resulting in mild hydronephrosis and hydroureter. Has been admitted for pain relief Creatinine admission 1.5 Discussed with patient trial of conservative therapy. High likelihood that stone should pass. If stone does not pass the next 24 hours will need stent as [place] [employer]. Review of Systems Constitutional: Constitutional: Reports as per HPI and Reports no additional constitutional complaints Cardiovascular: Cardiovascular: Reports as per HPI and Reports no additional cardiovascular complaints Respiratory: Respiratory: Reports as per HPI and Reports no additional respiratory complaints Gastrointestinal: Gastrointestinal: Reports as per HPI and Reports no additional gastrointestinal complaints Genitourinary: Genitourinary: Reports as per HPI Musculoskeletal: Musculoskeletal: Reports no additional musculoskeletal complaints and Reports as per HPI Neurologic: Reports system reviewed and no additional complaints, except as documented and Reports as per HPI [facility] Social History Social History Household Members: Family Housing: House Patient Tobacco Use Status: Never used Tobacco Meds Allergies Allergy/AdvReac Type Severity Reaction Status Date / Time No Known Allergies Allergy Verified 10/08/23 18:57 Active Medications: Current Medications Acetaminophen (Acetaminophen 325 Mg Tablet) 650 mg PO Q6H PRN PRN Reason: Pain, Mild (Pain Scale 1-3), fever or headache Calcium Carbonate (Calcium Carbonate 750 Mg Tab.Chew) 750 mg PO Q4H PRN PRN Reason: Heartburn Hydromorphone HCl (Hydromorphone Hcl 1 Mg/Ml Syringe) 1 mg IVPUSH Q3H PRN; Protocol PRN Reason: Pain, Moderate(Pain Scale 4-6) Last Admin: 10/10/23 08:29 Dose: 1 mg Ceftriaxone Sodium 1 gm/ (Sodium Chloride) 50 mls @ 100 mls/hr IV Q24H [facility] Last Infusion: 10/09/23 21:52 Dose: Infused Lactated Ringer's (Lr) 1,000 mls @ 125 mls/hr IVCONT .Q8H [facility] Last Admin: 10/10/23 08:30 Dose: 125 mls/hr Levofloxacin (Levaquin) 500 mg in 100 mls @ 100 mls/hr IV PREOP ONE Stop: 10/10/23 09:27 Magnesium Hydroxide (Milk Of Magnesia 30 Ml Oral.Susp) 30 ml PO DAILY PRN PRN Reason: Constipation Melatonin (Melatonin 3 Mg Tablet) 6 mg PO BEDTIME PRN PRN Reason: Insomnia Ondansetron HCl (Ondansetron Hcl 4 Mg/2 Ml Vial) 4 mg IVPUSH Q8H PRN PRN Reason: Nausea and Vomiting Sodium Chloride (0.9 % Sodium Chloride Flush 3 Ml Syringe) 3 ml IVFLUSH QSHIFT [facility] Last Admin: 10/10/23 07:02 Dose: Not Given Tamsulosin HCl (Tamsulosin Hcl 0.4 Mg Capsule) 0.4 mg PO DAILY [facility] Last Admin: 10/10/23 08:30 Dose: 0.4 mg Home Medications ?Medication ?Instructions ?Recorded ?Confirmed ?Last Taken ?Type acetaminophen 500 mg tablet 500 mg PO Q4H PRN pain 10/09/23 10/09/23 Unknown History (Tylenol Extra Strength) cyclobenzaprine 10 mg tablet 10 mg PO BEDTIME 10/09/23 10/09/23 Unknown History lidocaine 5 % topical patch 1 patch topical DAILY 10/09/23 10/09/23 Unknown History Physical Exam Vital Signs: Vital Signs: Last Vital Signs Temp 97.8 F 10/10/23 07:32 Pulse 56 10/10/23 07:32 Resp 19 10/10/23 08:29 BP 129/72 10/10/23 07:32 Pulse Ox 97 10/10/23 07:32 O2 Del Method Room Air 10/10/23 07:32 BMI result Body Mass Index 31.0 Const: General: cooperative, healthy appearing, comfortable and no acute distress Orientation/consciousness: patient oriented x3 HEENT: Face and sinus: Yes normal facial exam Mouth: moist mucous membranes Neck: Neck: Yes normal visual inspection, Yes full ROM and Yes trachea midline Chest: Chest palpation & inspection: normal inspection of the chest Resp: Effort & Inspection: normal respiratory effort, able to speak in complete sentences and no respiratory distress GI: Inspection: Yes normal to inspection Back/Spine/Pelvis: Cervical Spine: normal cervical lordosis Thoracic/Lumbar Spine: thoracic and lumbar spine normal to inspection Skin: General skin exam: no rashes or lesions noted Neuro: General: patient oriented x3, tone normal and moves all extremities Extrem: General: Yes normal to inspection and Yes capillary refill normal Results Labs 10/10/23 05:59 10/10/23 05:59 Labs: Abnormal lab results 10/10/23 Range/Units 05:59 Hgb 13.9 L (14.0-18.0) g/dl Hct 41.0 L (42.0-52.0) % Plt Count 130 L (160-400) X10*3/uL MPV 9.0 L (9.4-12.4) fL Short CBC 10/10/23 Range/Units 05:59 WBC 6.7 (4.8-10.8) X10*3/uL Hgb 13.9 L (14.0-18.0) g/dl Hct 41.0 L (42.0-52.0) % Plt Count 130 L (160-400) X10*3/uL BMP 10/10/23 05:59 Sodium 139 Potassium 4.5 Chloride 106 Carbon Dioxide 26 BUN 10 Creatinine 1.01 Calcium 8.8 D Urine 10/08/23 Range/Units 19:54 Urine Color Yellow Urine Appearance Clear Urine pH 7.5 (5.0-9.0) Ur Specific [place] 1.015 (1.005-1.025) Urine Protein 30 (1+) H (Neg-Trace) mg/dL Urine Glucose (UA) Negative (Negative) mg/dL All other labs normal. Assessment and Plan (1) Nephrolithiasis: Status: Acute (2) Hydronephrosis: Status: Acute Plan Distal left ureteric stone with hydronephrosis and elevated creatinine Plan try conservative therapy Stone does not pass within the next 24 hours will need cystoscopy, left retrograde, left stent placement. Procedures Date of Service Date of Service: 10/10/23
--- NOTE | 2023-10-10 09:15 | MHC.CM.PN ---
PT REPORTS HE LIVES WITH HIS AUNT HE IS INDEPENDENT WITH CARE AND WORKS HE HAS NO DME PCP: SHENG MOSCOSO PT DECLINES TO COMPLETE A HCP DCP: HOME VIA SELF-TRANSPORT
--- NOTE | 2023-10-10 09:53 | HO.PM.IMPN ---
Subjective Subjective Date of Service: 10/10/23 Interval History: still with pain Physical Exam Vital Signs: Vital Signs: Last Vital Signs Temp 97.8 F 10/10/23 07:32 Pulse 56 10/10/23 07:32 Resp 19 10/10/23 08:29 BP 129/72 10/10/23 07:32 Pulse Ox 97 10/10/23 07:32 O2 Del Method Room Air 10/10/23 07:32 BMI result Body Mass Index 31.0 General: AO X 3, no acute distress Resp: CTA bilateral, no accessory muscles used CVS: S1,S2,RRR GI: soft, non tender, non distended Neuro: motor grossly intact, alert Psych: appropriate affect, appropriate insight Objective Data Active Medications Acetaminophen (Acetaminophen 325 Mg Tablet) 650 mg PO Q6H PRN PRN Reason: Pain, Mild (Pain Scale 1-3), fever or headache Calcium Carbonate (Calcium Carbonate 750 Mg Tab.Chew) 750 mg PO Q4H PRN PRN Reason: Heartburn Hydromorphone HCl (Hydromorphone Hcl 1 Mg/Ml Syringe) 1 mg IVPUSH Q3H PRN; Protocol PRN Reason: Pain, Moderate(Pain Scale 4-6) Last Admin: 10/10/23 08:29 Dose: 1 mg Documented By: EMILY Ceftriaxone Sodium 1 gm/ (Sodium Chloride) 50 mls @ 100 mls/hr IV Q24H [facility] Last Infusion: 10/09/23 21:52 Dose: Infused Documented By: CHAR Lactated Ringer's (Lr) 1,000 mls @ 125 mls/hr IVCONT .Q8H [facility] Last Admin: 10/10/23 08:30 Dose: 125 mls/hr Documented By: EMILY Magnesium Hydroxide (Milk Of Magnesia 30 Ml Oral.Susp) 30 ml PO DAILY PRN PRN Reason: Constipation Melatonin (Melatonin 3 Mg Tablet) 6 mg PO BEDTIME PRN PRN Reason: Insomnia Ondansetron HCl (Ondansetron Hcl 4 Mg/2 Ml Vial) 4 mg IVPUSH Q8H PRN PRN Reason: Nausea and Vomiting Sodium Chloride (0.9 % Sodium Chloride Flush 3 Ml Syringe) 3 ml IVFLUSH QSHIFT [facility] Last Admin: 10/10/23 07:02 Dose: Not Given Documented By: COTEMA Non-Admin Reason: IV Running Tamsulosin HCl (Tamsulosin Hcl 0.4 Mg Capsule) 0.4 mg PO DAILY [facility] Last Admin: 10/10/23 08:30 Dose: 0.4 mg Documented By: EMILY Labs 10/10/23 05:59 10/10/23 05:59 Labs: Laboratory Results - last 24 hr 10/10/23 05:59 MCV 87.8 MCH 29.8 MCHC 33.9 RDW 12.7 Plt Count 130 L MPV 9.0 L Absolute Nucleated RBC 0.000 Nucleated RBC % (auto) 0.0 Anion Gap 12 Estim Creat Clear Calc 123.4 Estimated GFR > 60 Fasting Glucose 96 Calcium 8.8 D Microbiology Microbiology Results: Microbiology 10/09/23 05:04 Blood Culture - Preliminary Blood - Venous No growth after 24 hours. 10/09/23 05:11 Blood Culture - Preliminary Blood - Venous No growth after 24 hours. 10/08/23 19:54 Urine Culture - Preliminary Urine clean catch - Clean Catch Midstream No growth to date. Assessment and Plan (1) Hydronephrosis: Status: Acute Plan 23M presented with left flank pain found to have obstructing left 1 mm stone Left flank pain due to obstructing left 1 mm stone with hydronephrosis and acute kidney injury Continue IV fluids, Flomax, strain urine, pain meds, monitor BMP, empiric antibiotics, plan for cysto today if doesnt pass Low risk for DVT - early ambulation Full code reason for continued hospitalization: Has not passed stone, requiring IV interventions Quality Stroke Does the patient have a stroke diagnosis?: No VTE Prior VTE?: No VTE Risk Level:: Medical - moderate - high VTE Device Contraindication: N/A - Device Ordered VTE Drug Contraindication: Treatment Not Indicated
--- NOTE | 2023-10-10 09:54 | PM.DS ---
DS: Providers Provider Date of Service: 10/10/23 Date of admission: 10/09/23 00:41 Primary care physician: Unknown Physician Consults: 10/09/23 00:41 Consult to Urology Routine Consulting Provider: [facility] Reason for consultation: Nephrolithiasis with hydronephrosis and hydroureter DS: Diagnosis Discharge Diagnosis (1) Hydronephrosis: Status: Acute DS: Summary Hospital Course Hospital Course: from initial hpi: 23-year-old male with no pertinent past medical history and not on prescription medications who presents to the emergency department for evaluation of left flank pain. Patient states it started 3 days prior to presentation. Patient was seen in the ER 1 day prior to presentation when an ultrasound was done which showed mild caliectasis. Patient was discharged on p.o. oxycodone but returned to the ER as his symptoms progressed. Pain was not relieved p.o. oxycodone. He has not experienced similar pain before. No history of kidney stones. He denies fever, chills, chest discomfort, palpitations, shortness of breath, changes in urinary or bowel habits. In the emergency department, imaging with nephrolithiasis and hydronephrosis with hydroureter. hospital course: Patient was admitted for left flank pain and acute kidney injury due to obstructing left 1 mm stone with hydronephrosis. He was treated with IV fluids, Flomax, empiric antibiotics, pain meds. Patient did not clear stone with conservative measures, underwent cystoscopy with stent placement. Patient will be discharged home and follow up with Urology as outpatient. Time Attestation Discharge Coordination Time (in mins): 34 Quality: Safe Use of Opioids Does Pt have an Active Cancer Diagnosis on the Problem List?: No Quality: Stroke Does the patient have a stroke diagnosis?: No Physical Exam Vital Signs: Vital Signs: Last Vital Signs Temp 97.8 F 10/10/23 07:32 Pulse 56 10/10/23 07:32 Resp 19 10/10/23 08:29 BP 129/72 10/10/23 07:32 Pulse Ox 97 10/10/23 07:32 O2 Del Method Room Air 10/10/23 07:32 BMI result Body Mass Index 31.0 General: AO X 3, no acute distress Resp: CTA bilateral, no accessory muscles used CVS: S1,S2,RRR GI: soft, non tender, non distended Neuro: motor grossly intact, alert Psych: appropriate affect, appropriate insight DS: Data Data Completed and Pending Labs on day of discharge: Laboratory Results - last 24 hr 10/10/23 05:59 WBC 6.7 RBC 4.67 Hgb 13.9 L Hct 41.0 L MCV 87.8 MCH 29.8 MCHC 33.9 RDW 12.7 Plt Count 130 L MPV 9.0 L Absolute Nucleated RBC 0.000 Nucleated RBC % (auto) 0.0 Sodium 139 Potassium 4.5 Chloride 106 Carbon Dioxide 26 Anion Gap 12 BUN 10 Creatinine 1.01 Estim Creat Clear Calc 123.4 Estimated GFR > 60 Fasting Glucose 96 Calcium 8.8 D Preliminary micro results at discharge 10/09/23 05:04 Blood Culture - Preliminary Blood - Venous No growth after 24 hours. 10/09/23 05:11 Blood Culture - Preliminary Blood - Venous No growth after 24 hours. 10/08/23 19:54 Urine Culture - Preliminary Urine clean catch - Clean Catch Midstream No growth to date. Discharge Plan Discharge Anticipated Discharge Date/Time: 10/10/23 10:11 Patient Disposition: Home, Self-Care Discharge Diagnosis: nathalie, kidney stone Referrals: Willis Valentin MD [Physician] - 1 Week Physician,Aidan J [Physician] - 1 Week Discharge Medications: New tamsulosin 0.4 mg capsule 0.4 mg PO BEDTIME 14 Days Qty: 14 0RF phenazopyridine [Pyridium] 100 mg tablet 100 mg PO TID PRN (Reason: Spasm) 4 Days Qty: 12 0RF naproxen 500 mg tablet 500 mg PO BID PRN (Reason: pain) 7 Days Qty: 14 0RF Continued methocarbamol 750 mg tablet 750 mg PO TID 3 Days Qty: 9 0RF oxycodone 5 mg tablet 5 mg PO Q6H PRN (Reason: severe pain (scale score 7-10)) Qty: 7 0RF Rx Instructions: Partial Fill upon patient request. cyclobenzaprine 10 mg tablet 10 mg PO BEDTIME lidocaine 5 % adhesive patch,medicated 1 patch topical DAILY acetaminophen [Tylenol Extra Strength] 500 mg tablet 500 mg PO Q4H PRN (Reason: pain) Discharge Orders: Discharge Order (Routine); Ordered 10/10/23 Ordered By: Willis Valentin Diet: Advance to usual diet Activity on Discharge: As tolerated Stand Alone Forms: Patient Portal Discharge page Print Language: Nicaraguan Care Plan Goals: stone Health Concerns: stone Plan of Treatment: stone Assessment: stone
--- NOTE | 2023-10-10 15:31 | PC.NURSE ---
Patient arrived to preop. #20 left AC flushed well, site asymptomatic.
--- NOTE | 2023-10-10 15:32 | MHC.SHP ---
Pre-Procedural Eval Section A - 24 Hr Update-Section A only Date of Service: 10/10/23 The patient is an INPATIENT: No Changes since office visit: No Cold of Flu in the past 2 weeks, No New Medical Problems, No Changes in Medication and No Patient answered all questions The patient has been examined within 24 hours of the surgical procedure. The History & Physical has been completed within 30 days and I have reviewed it.: Yes Section B - Complete if H&P > 30 days Chief Complaint: Abdominal pain Allergies: Allergies Allergy/AdvReac Type Severity Reaction Status Date / Time No Known Allergies Allergy Verified 10/10/23 15:16 Review of Systems Sugical H&P ROS: Negative: Constitution, Cardiovascular, Respiratory, Neurological, Psychiatric, Hem-Onc, Allergic/Immunologic, Gastrointestinal, Genitourinary, Musculoskeletal, Integumentary, Endocrine and Eyes/Ears/Nose/Throat Exam Surgical H&P Exam: Normal: HEENT, Normal: Heart, Normal: Lungs, Normal: Extremities, Normal: Abdomen, Normal: Skin and Normal: Neurological Plan Diagnosis/Plan: Unchanged (cystoscopy, left retrograde, left stent placement) I have reviewed the history and physical and performed a pertinent physical examination on my patient. No changes have occurred unless specified. Time Spent With Patient Time: Total time managing care of this patient today ____ minutes.
[2023-10-10] MEDS: Lactated Ringers 1,000 ML 80 ML IVCONT (15:39)
--- NOTE | 2023-10-10 16:01 | P.OP_ITS ---
Operative Note Operative Note Date of Service: 10/10/23 Narrative: PreOperative Diagnosis: left distal ureteric stone Post Operative Diagnosis: left distal ureteric stone Procedure: cysto, retrograde, left stent placement Surgeon: Dr Willis Valentin Anesthesia: sedation Indications for procedure: left distal stone Procedure: After informed consent was verified the patient was brought to the operating room and placed in a supine position. Anesthesia was administered per protocol. The patient was placed in modified dorsal lithotomy position and prepped and draped in a sterile fashion. A safety pause time-out was performed. Laterality of procedure and antibiotics were confirmed, appropriate imaging was available A 22 Martiniquais cystoscope was introduced per urethra. No abnormality was noted of urethra or bladder. Both ureteric orifices were seen in a normal position. The left ureter was cannulated with an open ended catheter and a retrograde examination was performed. Small filling defect . A Sensor guidewire was placed under fluoroscopy and a good coil was seen within the renal pelvis. A 6 x 26cm double J stent was advanced over the wire and up to the level of the renal pelvis under fluoroscopic and direct visualization. The stent was seen with appropriate coil within the renal pelvis and in the bladder after deployment. The patient tolerated the procedure well and was transferred in a stable condition to the recovery area. Pathology: none Drains: 6 x 26cm
--- NOTE | 2023-10-10 16:15 | P.CONAN_ITS ---
HPI - Anesthesia Eval Consult details Narrative: for cysto, left stent PMFSH Active Problems Active Problems: All Active Problems Hydronephrosis (Acute) Nephrolithiasis (Acute) Family History Family history of problems with anesthesia: No Surgical History Surgical History (Updated 10/10/23 @ 15:22 by Selina Fitzgerald) H/O wisdom tooth extraction History of Problems with Anesthesia: No Social History Social History Household Members: Family Housing: House Patient Tobacco Use Status: Never used Tobacco service: No Meds Allergies Allergy/AdvReac Type Severity Reaction Status Date / Time No Known Allergies Allergy Verified 10/10/23 15:16 Active Medications: Current Medications Acetaminophen (Acetaminophen 325 Mg Tablet) 650 mg PO Q6H PRN PRN Reason: Pain, Mild (Pain Scale 1-3), fever or headache Calcium Carbonate (Calcium Carbonate 750 Mg Tab.Chew) 750 mg PO Q4H PRN PRN Reason: Heartburn Hydromorphone HCl (Hydromorphone Hcl 1 Mg/Ml Syringe) 1 mg IVPUSH Q3H PRN; Protocol PRN Reason: Pain, Moderate(Pain Scale 4-6) Last Admin: 10/10/23 08:29 Dose: 1 mg Ceftriaxone Sodium 1 gm/ (Sodium Chloride) 50 mls @ 100 mls/hr IV Q24H [facility] Last Infusion: 10/09/23 21:52 Dose: Infused Lactated Ringer's (Lr) 1,000 mls @ 125 mls/hr IVCONT .Q8H [facility] Last Infusion: 10/10/23 14:09 Dose: 0 mls/hr Lactated Ringer's (Lr) 1,000 mls @ 80 mls/hr IVCONT .[id number] [facility] Last Admin: 10/10/23 15:39 Dose: 80 mls/hr Magnesium Hydroxide (Milk Of Magnesia 30 Ml Oral.Susp) 30 ml PO DAILY PRN PRN Reason: Constipation Melatonin (Melatonin 3 Mg Tablet) 6 mg PO BEDTIME PRN PRN Reason: Insomnia Ondansetron HCl (Ondansetron Hcl 4 Mg/2 Ml Vial) 4 mg IVPUSH Q8H PRN PRN Reason: Nausea and Vomiting Oxycodone HCl (Oxycodone Hcl Immed Release 5 Mg Tablet) 5 mg PO Q4H PRN PRN Reason: Breakthrough Pain Sodium Chloride (0.9 % Sodium Chloride Flush 3 Ml Syringe) 3 ml IVFLUSH QSHIFT [facility] Last Admin: 10/10/23 14:02 Dose: Not Given Tamsulosin HCl (Tamsulosin Hcl 0.4 Mg Capsule) 0.4 mg PO DAILY [facility] Last Admin: 10/10/23 08:30 Dose: 0.4 mg Home Medications ?Medication ?Instructions ?Recorded ?Confirmed ?Last Taken ?Type acetaminophen 500 mg tablet 500 mg PO Q4H PRN pain 10/09/23 10/09/23 Unknown History (Tylenol Extra Strength) cyclobenzaprine 10 mg tablet 10 mg PO BEDTIME 10/09/23 10/09/23 Unknown History lidocaine 5 % topical patch 1 patch topical DAILY 10/09/23 10/09/23 Unknown History Exam Height,Weight and Vital Signs: Height 5 ft 8 in Weight 92.5 kg Last Vital Signs Temp 97.9 F 10/10/23 16:14 Pulse 88 10/10/23 16:15 Resp 16 10/10/23 16:15 BP 139/78 10/10/23 16:15 Pulse Ox 97 10/10/23 16:15 O2 Del Method Room Air 10/10/23 16:15 Pertinent Lab Results Pertinent Lab Results: Laboratory Tests 10/08/23 10/08/23 10/09/23 19:03 19:54 05:05 WBC 11.1 H 10.3 RBC 5.02 4.58 L Hgb 15.1 13.8 L Hct 44.2 39.4 L MCV 88.0 86.0 MCH 30.1 30.1 MCHC 34.2 35.0 RDW 12.8 12.6 Plt Count 140 L 132 L MPV 9.1 L 8.7 L Immature Gran % (Auto) 0.6 H 0.4 Neut % (Auto) 75.1 H 71.4 Lymph % (Auto) 13.5 L 15.8 L [place] % (Auto) 10.2 11.5 H Eos % (Auto) 0.4 0.6 Baso % (Auto) 0.2 0.3 Lymph # (Auto) 1.5 1.6 [place] # (Auto) 1.1 1.2 Eos # (Auto) 0.0 0.1 Baso # (Auto) 0.0 0.0 Abs Immat Gran (auto) 0.07 H 0.04 H Absolute Neuts (auto) 8.4 H 7.4 Absolute Nucleated RBC 0.000 0.000 Nucleated RBC % (auto) 0.0 0.0 Sodium 140 139 Potassium 4.0 4.3 Chloride 104 110 H Carbon Dioxide 28 22 Anion Gap 12 11 L BUN 13 11 Creatinine 1.51 H 1.52 H Estim Creat Clear Calc 81.5 81.0 Estimated GFR 57 56 Random Glucose 116 H 94 Fasting Glucose Lactic Acid 0.5 Calcium 9.5 7.8 L D Magnesium 1.9 Total Bilirubin 0.7 AST 14 ALT 17 Alkaline Phosphatase 55 Total Protein 6.8 Albumin 3.9 Lipase 24 Urine Color Yellow Urine Appearance Clear Urine pH 7.5 Ur Specific [place] 1.015 Urine Protein 30 (1+) H Urine Glucose (UA) Negative Urine Ketones 15 Urine Blood Large (3+) H Urine Nitrite Negative Ur Leukocyte Esterase Moderate (2+) H Urine RBC >20 H Urine WBC 6-10 H Ur Squamous Epith Cells 0-2 Urine Bacteria None Seen Hyaline Casts 0-2 10/10/23 05:59 WBC 6.7 RBC 4.67 Hgb 13.9 L Hct 41.0 L MCV 87.8 MCH 29.8 MCHC 33.9 RDW 12.7 Plt Count 130 L MPV 9.0 L Immature Gran % (Auto) Neut % (Auto) Lymph % (Auto) [place] % (Auto) Eos % (Auto) Baso % (Auto) Lymph # (Auto) [place] # (Auto) Eos # (Auto) Baso # (Auto) Abs Immat Gran (auto) Absolute Neuts (auto) Absolute Nucleated RBC 0.000 Nucleated RBC % (auto) 0.0 Sodium 139 Potassium 4.5 Chloride 106 Carbon Dioxide 26 Anion Gap 12 BUN 10 Creatinine 1.01 Estim Creat Clear Calc 123.4 Estimated GFR > 60 Random Glucose Fasting Glucose 96 Lactic Acid Calcium 8.8 D Magnesium Total Bilirubin AST ALT Alkaline Phosphatase Total Protein Albumin Lipase Urine Color Urine Appearance Urine pH Ur Specific [place] Urine Protein Urine Glucose (UA) Urine Ketones Urine Blood Urine Nitrite Ur Leukocyte Esterase Urine RBC Urine WBC Ur Squamous Epith Cells Urine Bacteria Hyaline Casts Narrative Narrative: GAIL Airway Mallampati Class: II TM Dist: <=3cm Neck ROM: Full Loose/Missing/Broken Teeth: No Heart: ok Lungs: ok Assessment and Plan Assessment Anesthesia Assessment: Anesthesia Plan Discussed and Chart Reviewed Final Anesthetic Review Family History of Problems with Anesthesia: No History of Problems with Anesthesia: No NPO: Yes ASA Class: II Final Preanesthetic Review: No Changes in Pt Med Stat, Meds/Allgs Chart Reviewed, Consent Obtained/Reviewed and Anes Risks/Benef Reviewed Patient Risk: Low Procedure Risk: Low Anesthetic Plan Anesthetic Plan: GA and Agree w/ Assess. and Plan Disposition: Standard PACU
[2023-10-10] MEDS: Phenazopyridine HCL 100 MG TABLET PO (16:34)
== END 2023-10-10 17:08 | disposition home or self-care (01) | DRG 465 ==
LOC: HO.ED 10-09 00:45 → HO.EDOVER 10-09 00:55 → HO.S3 10-10 00:05
PROVIDERS: Physician Assistant; Urology; Admitting Provider Student in an Organized Health Care Education/Training Program; Emergency Provider Student in an Organized Health Care Education/Training Program; PCP Family Medicine; Visit Provider Internal Medicine
PROC: 0T778DZ Dilation of Left Ureter with Intraluminal Device, Via Natural or Artificial Opening Endoscopic (ICD-10-PCS; principal; 2023-10-10 16:30)
DX: N13.2 Hydronephrosis with renal and ureteral calculous obstruction (principal); N17.9 Acute kidney failure, unspecified; Z79.899 Other long term (current) drug therapy
CPT/HCPCS: 36415; 74174; 74176; 80048; 80053; 81001; 81003; 83605; 83690; 83735; 85025; 85027; 87040; 87086; 99285; C1758; C1769; C2617; J0131; J0696; J1170; J1885; J1956; J2270; J2405; J2704; J3010; J7120; Q9967

== ENCOUNTER → 2023-10-09 00:41 | Outpatient (BNV) | payer BC, SELFPAY | PROVIDERS: Admitting Provider Student in an Organized Health Care Education/Training Program; Emergency Provider Student in an Organized Health Care Education/Training Program; Visit Provider Student in an Organized Health Care Education/Training Program | DX: N13.30 Unspecified hydronephrosis (principal) | CPT/HCPCS: 99222; 99239; 99499 ==

== ENCOUNTER → 2023-10-09 00:41 | Outpatient (BNV) | payer BC, SELFPAY | PROVIDERS: Admitting Provider Student in an Organized Health Care Education/Training Program; Emergency Provider Student in an Organized Health Care Education/Training Program; Visit Provider Urology | DX: N20.1 Calculus of ureter (principal); N13.30 Unspecified hydronephrosis | CPT/HCPCS: 52332; 74420; 99222 ==

== ENCOUNTER 2023-10-16 14:47 | Outpatient (AMB) | payer BC, SELFPAY ==
--- NOTE | 2023-10-16 15:02 | A.OFFVIS_ITS ---
Intake Visit Reasons: string stent removal Intake Note: Patient presents today for string stent removal Urology Medications: Tamsulosin Blood Thinner: none Telephone Operator Required: No Accompanied by: Self / Same As Patient Allergies No Known Allergies Allergy (Verified 10/16/23 15:31) Medication List - Last Reconciled 10/16/23 by THEODORE Sanabria tamsulosin 0.4 mg PO BEDTIME 14 days HPI Comments Details: Smith is a very pleasant 23-year-old male patient of Dr. Melgar. He presents to the office today as a new patient for nephrolithiasis. Of note, patient underwent cystoscopy, retrograde, left stent placement with Dr. Valentin on 10/30/23 and presents to the office today for string stent removal. When asked he reports to be doing and feeling well. He does report noting some soreness since the procedure however denies any bothersome urinary issues or concerns at this time. When asked he denies any previous history of nephrolithiasis and or surgical intervention for nephrolithiasis prior to his procedure with Dr. Valentin. He discusses currently being in the [employer]. In assessment of the patient today stent string was visualized and ureteral stent was removed without difficulty. Patient tolerated procedure well. Discussed, educated, stressed the importance of adequate hydration. Discussed obtaining renal ultrasound and near future metabolic workup. He otherwise denies urinary urgency, urinary frequency, incontinence, nocturia, hematuria, dysuria, foul smelling urine, changes to urinary stream, flank pain, fever, and or chills. He is happy with her current voiding parameters. In office urinalysis results reviewed with the patient today. He otherwise offers no other issues or concerns at this time. [facility] Surgical History H/O wisdom tooth extraction Social History Household Members: Family Housing: House Patient Tobacco Use Status: Never used Tobacco service: No Review of Systems Const All systems reviewed & are unremarkable except as noted in HPI and below Physical Exam Const General: cooperative, healthy appearing, comfortable, no acute distress, well developed, alert and awake Orientation/consciousness: patient oriented x3 Limitations: no limitations HEENT Head: Yes normal to inspection, Yes normocephalic and Yes atraumatic Ears: hearing grossly normal bilaterally Eyes General: appearance normal, both eyes and all related structures Neck Neck: Yes normal visual inspection and Yes trachea midline Chest Chest palpation & inspection: normal inspection of the chest Resp Effort & Inspection: normal respiratory effort and able to speak in complete sentences Cardio Rate: regular rate GI Inspection: Yes normal to inspection General: Yes no CVA tenderness Back/Spine/Pelvis Back: no CVA tenderness Skin General skin exam: no rashes or lesions noted Neuro General: patient oriented x3 Extrem General: Yes normal to inspection Psych Appearance: grossly normal and well kempt Mental Status: mental status grossly normal Speech and movement: Normal speech and movement present and Clear speech present Affect: normal affect Attitude: cooperative Thought process: Normal thought process present Thought content: Normal thought content present Insight: Fair insight present (Psych) Judgement: Fair judgement present (Psych) Results AMB Urinalysis, Automated UA Leukoctes 70 Darisu/uL Last Edit by [employer] on 10/16/23 15:29 UA Nitrite Negative Last Edit by [employer] on 10/16/23 15:29 UA Urobilinogen 0.2 mg/dL Last Edit by [employer] on 10/16/23 15:29 UA Protein 100 mg/dL Last Edit by [employer] on 10/16/23 15:29 UA pH 6.0 Last Edit by [employer] on 10/16/23 15:29 UA Blood 200 [place]/uL Last Edit by [employer] on 10/16/23 15:29 UA Specific [place] 1.015 Last Edit by [employer] on 10/16/23 15:29 UA Ketone Negative Last Edit by [employer] on 10/16/23 15:29 UA Bilirubin 0 mg/dL Last Edit by [employer] on 10/16/23 15:29 UA Glucose 0 mg/dL Last Edit by [employer] on 10/16/23 15:29 Results Reviewed Results Reviewed: Laboratory Last Values Urine pH (Auto) 6.0 10/16/23 15:27 Specific [place] (Auto) 1.015 10/16/23 15:27 Urine Protein (Auto) 100 mg/dL 10/16/23 15:27 Glucose (UA)(Auto) 0 mg/dL 10/16/23 15:27 Urine Ketones (Auto) Negative 10/16/23 15:27 Urine Blood (Auto) 200 [place]/uL 10/16/23 15:27 Urine Nitrite (Auto) Negative 10/16/23 15:27 Urine Bilirubin (Auto) 0 mg/dL 10/16/23 15:27 Urine Urobilinogen (Auto) 0.2 mg/dL 10/16/23 15:27 Leukocyte Esterase (Auto) 70 Darius/uL 10/16/23 15:27 Assessment & Plan Assessment & Plan (1) Hydronephrosis: Code(s): N13.30 - Unspecified hydronephrosis Category: Medical (2) Nephrolithiasis: Code(s): N20.0 - Calculus of kidney Category: Medical Plan In office urinalysis results reviewed with the patient today; as noted above. Stent string was removed without difficulty patient tolerated procedure well. He currently denies any bothersome urinary issues or concerns. Discussed at length potential causes of nephrolithiasis. Discussed, educated, and stressed the importance of adequate hydration in relation to nephrolithiasis as well as overall health and well-being. Discussed Adding 1 oz of lemon juice to water daily. Will obtain renal ultrasound Follow-up in 1-3 months with imaging to be completed prior; or sooner with any issues, concerns, and or questions. Orders: Orders US renal BI Today N20.0 - Calculus of kidney AMB Urinalysis Automated Today Z13.9 - Encounter for screening, unspecified Medications: Discontinued methocarbamol Discontinued Reason: Patient no longer taking 750 mg PO TID 3 days 9 tabs 0RF oxycodone Partial Fill upon patient request. Discontinued Reason: Patient no longer taking 5 mg PO Q6H PRN 7 tabs 0RF severe pain (scale score 7-10) naproxen Discontinued Reason: Patient no longer taking 500 mg PO BID 7 days PRN 14 tabs 0RF pain phenazopyridine (Pyridium) Discontinued Reason: Patient no longer taking 100 mg PO TID 4 days PRN 12 tabs 0RF Spasm Patient Instructions: The patient had an opportunity to ask questions regarding the treatment plan. All questions were answered. Physical exam, labs, and imaging were discussed and reviewed in detail. As well as risks, benefits, and discussion of treatment choices. No major barriers to understanding were identified. The patient expressed understanding and agreement with the above treatment plan. The patient was made aware they should contact our office by phone for worsening of their current condition, the appearance of new symptoms, or with any questions or concerns. Compliance is encouraged with any medications and follow up testing that is ordered. It is a privilege to be allowed the opportunity to participate in? your urological care.? Again, if you have any questions or concerns If you have any questions or concerns please do not hesitate to contact me. The office is [phone]. This note is constructed using voice recognition software. While every effort has been made to ensure accuracy fashion journalist errors may have been included. Yours sincerely, THEODORE Sanabria Coding Level of Care Code Est Pt Level 3 (37773) Diagnoses Hydronephrosis N13.30 Nephrolithiasis N20.0
== END 2023-10-16 15:25 | disposition home or self-care (01) ==
PROVIDERS: PCP Family Medicine; Visit Provider Nurse Practitioner Family
DX: N13.30 Unspecified hydronephrosis (principal); N20.0 Calculus of kidney; Z13.9 Encounter for screening, unspecified
CPT/HCPCS: 99213

== ENCOUNTER → 2023-10-16 14:47 | Outpatient (BNVA) | payer BC, SELFPAY | PROVIDERS: PCP Family Medicine; Visit Provider Nurse Practitioner Family | DX: Z46.6 Encounter for fitting and adjustment of urinary device (principal); N20.0 Calculus of kidney | CPT/HCPCS: 81003 ==

== ENCOUNTER 2024-03-05 07:59 | Emergency (ER) | payer OTHER, BC, SELFPAY ==
--- NOTE | ~2024-03-05 | XR_ITS ---
EXAMINATION: XR KNEE, RIGHT CLINICAL INFORMATION: fall, pain COMPARISON: None available. TECHNIQUE: Four views of the right knee. FINDINGS: No fracture or joint effusion. Alignment is anatomic. Joint spaces are maintained. No abnormal soft tissue calcification. XR/XR knee RT 4V IMPRESSION: Normal right knee. Electronically signed by: Cuong Garay MD 03/05/2024 10:17 AM [facility] [place]
[2024-03-05 08:04] VITALS: BP 126/75; PULSE 70; RESP 16; TEMP 36.1; O2SAT 100; BMI 30.4
--- NOTE | 2024-03-05 08:15 | ED.LOWEXIN ---
HPI - Extremity Injury (Lower) General Chief Complaint: Extremity Injury, Lower Stated Complaint: r knee inj at work Time Seen by Provider: 03/05/24 08:09 Source: patient Mode of arrival: ambulatory Limitations: no limitations History of Present Illness HPI Narrative: Patient is a 23-year-old male who presents emergency department for evaluation. He reports a work-related injury from yesterday 03/04/2024. He works for [employer], He describes a foot justin yesterday that involved climbing over 1 fence with a subsequent fall continued running and climbing over another fence. He is not certain exactly what may have happened. However he reports this morning he noticed he was having pain to his right knee particularly over his patella and just below it. Pain is made worse when bending the knee. Pain however is tolerable to ambulate. Denies prior injury to this knee. Related Data Previous Rx's ?Medication ?Instructions ?Recorded tamsulosin 0.4 mg capsule 0.4 mg PO BEDTIME 14 days #14 caps 10/10/23 Allergies Allergy/AdvReac Type Severity Reaction Status Date / Time No Known Allergies Allergy Verified 03/05/24 08:05 Review of Systems Review of Systems: Yes all other systems are reviewed and are negative PMFSH Past Medical History Attestation statement: The following information was validated with the patient. Source: old records reviewed Surgical History H/O wisdom tooth extraction Social History Social History Household Members: Family Housing: House Patient Tobacco Use Status: Never used Tobacco Advance Directives: No Advance Directives Information Provided: No Do you have a plan to hurt others: No Plan service: No Physical Exam Vital Signs: Vital Signs: Last Vital Signs Temp 96.9 F 03/05/24 08:04 Pulse 70 03/05/24 08:04 Resp 16 03/05/24 08:04 BP 126/75 03/05/24 08:04 Pulse Ox 100 03/05/24 08:04 O2 Del Method Room Air 03/05/24 08:04 BMI result Body Mass Index 30.4 Appearance: Alert.?Oriented to person, place and time. No acute distress.?Normal affect. Eyes: Pupils equal, round and reactive to light.? ENT: Pharynx normal.?? Neck: Normal inspection.? Neck supple.?? CVS: Heart sounds normal. Normal heart rate and rhythm.? Pulses normal.?? Respiratory: No respiratory distress.? Lung sounds clear to auscultation bilaterally?? Abdomen: Soft and non-tender. Normoactive bowel sounds. No pulsatile mass.?? Skin: Skin warm and dry.? Normal skin color.? Normal skin turgor.?? Extremities: No lower extremity edema.? No calf ttp?2+ DP/PT pulse. Right knee without effusion. Tenderness upon palpation over the patella and just inferior to it. Full AROM. No laxity. Anterior and posterior drawer test negative. Valgus and varus stress test negative. Neuro: Moves all extremities spontaneously. Sensation intact bilaterally. Ambulates with mild antalgic gait. Medical Decision Making Medical Decision Making MDM Narrative: Patient is a 23-year-old male who presents emergency department for evaluation of traumatic right knee pain as per HPI. No obvious deformity, no effusion, no apparent laxity. Extremity is neurovascularly intact distally. Excellent obtained to exclude sure, less likely dislocation versus sprain. No erythema or warmth, or high-risk past medical history that would suggest a septic joint. Differential Diagnosis Differential Diagnoses: The differential diagnosis associated with the presentation includes (See narrative above) Independent Interpretation I performed an independent interpretation of an: Plain X-Ray (No acute fracture dislocation) Radiology Impression Discussion of test interpretation with radiology: I have reviewed the radiologist's reading. Radiologist Impression: XR/XR knee RT 4V IMPRESSION: Normal right knee. External Record Review External record reviewed: Outpatient record Prescription Management I considered prescription management with: Pain Medication (Acetaminophen/ibuprofen) Discharge Plan Discharge Clinical Impression: Patellar tendinitis Patient Disposition: Home, Self-Care Instructions: Patellar Tendinitis (ED) Additional Instructions: X-ray does not show evidence of fracture or dislocation. But is important that you rest over the next few days, refrain from running, jumping, squatting as this may worsen the inflammation to the tendon and cause further pain. If after 3 days who continued to have persistent pain you should seek re-evaluation with primary care doctor/[facility]. You can take ibuprofen 200 mg, 3 tablets (600mg) every 6-8 hours as needed for pain, in addition to Tylenol 500 mg, 2 tablets (1,000mg) every 4-6 hours as needed for pain, but not to exceed 3 doses daily (3,000mg).? Prescriptions: No Action tamsulosin 0.4 mg capsule 0.4 mg PO BEDTIME 14 Days Qty: 14 0RF Referrals: [facility] [Provider Group] Mary Melgar Jr, MD [Primary Care Provider] - Stand Alone Forms: Work/School Release Print Language: Danish
[2024-03-05 10:44] VITALS: BP 126/75; PULSE 70; RESP 16; TEMP 36.1; O2SAT 100
== END 2024-03-05 10:44 | disposition home or self-care (01) ==
PROVIDERS: Emergency Provider Emergency Medicine; PCP Family Medicine
DX: M76.51 Patellar tendinitis, right knee (principal); M25.561 Pain in right knee
CPT/HCPCS: 73564; 99282; 99283

== ENCOUNTER → 2024-03-08 09:09 | Outpatient (BNVA) | payer OTHER, SELFPAY | PROVIDERS: PCP Family Medicine; Visit Provider Internal Medicine | DX: S83.91XA Sprain of unspecified site of right knee, initial encounter (principal); S30.1XXA Contusion of abdominal wall, initial encounter; W17.89XA Other fall from one level to another, initial encounter; Y35.811A Legal intervention involving manhandling, law enforcement official injured, initial encounter | CPT/HCPCS: 99202 ==